=== PATIENT | female | born 1940 | race Caucasian/White ===

== ENCOUNTER → 2016-07-09 | Outpatient (CLI) | payer MEDICARE, MEDICAID ==
[~2016-07-09] MED LIST: 'TENORMIN50 MG PO; ATENOLOL25 MG PO; ATENOLOL50 MG PO; CARDIZEM CD120 MG PO; CARDIZEM CD240 MG PO; CARDIZEM LA180 MG PO; CARDIZEM120 MG PO; CIPROFLOXACIN500 MG PO; COUMADIN2.5 M1 PO; CRESTOR10 MG PO; CRESTOR20 MG PO; CRESTOR5 MG PO; Coumadin2.5 MG PO; DARVOCET N 1001 TAB PO; DYAZIDE 25 MG-31 CAP PO; FLONASE0.05 MG/AC NS; HYDROCHLOROTHIA25 MG PO; LANOXIN0.125 MG PO; LOVENOX EASYINJ1 DEV SC; METOPROLOL50 MG PO; MIRALAX POWDER17 G1 PO; MIRALAX17 GM/PACK PO; PRINIVIL2.5 MG PO; PROTONIX40 MG PO; SENEKOT PO; SOTALOL80 MG PO; ULTRAM50 MG PO; WARFARIN SOD5 MG PO
== END | disposition home or self-care (01) ==
LOC: CARD 10:22
DX: I48.2 Chronic atrial fibrillation (principal); I08.1 Rheumatic disorders of both mitral and tricuspid valves; I27.2 Other secondary pulmonary hypertension; Z79.899 Other long term (current) drug therapy

== ENCOUNTER → 2016-12-11 | Outpatient (CLI) | payer MEDICARE, MEDICAID | END | disposition home or self-care (01) | LOC: US 11:57 | DX: N64.4 Mastodynia (principal) ==

== ENCOUNTER → 2017-02-11 | Outpatient (CLI) | payer MEDICARE, MEDICAID | END | disposition home or self-care (01) | LOC: MAMMO 01-22 11:00 | DX: R92.2 Inconclusive mammogram (principal) ==

== ENCOUNTER 2019-04-04 10:21 | Emergency (ER) | payer MEDICARE, MEDICAID ==
[~2019-04-04] VITALS: Ht 165.1 cm; Wt 88.9 kg
[~2019-04-04 10:21] MED LIST changes: +ALPRAZOLAM0.25 M2 PO; +BIOTIN1 M2 PO; +CARDIZEM CD360 MG PO; +ELIQUIS5 M1 PO; +VITAMIN D31000 UNI1 PO
[2019-04-04 10:28] VITALS: BP 136/81
[2019-04-04] MEDS ORDERED: TYLENOL325 M1 PO (11:13)
== END 2019-04-04 13:05 | disposition home or self-care (01) ==
LOC: ED 10:21
DX: S20.212A Contusion of left front wall of thorax, initial encounter (principal); I48.91 Unspecified atrial fibrillation; K21.9 Gastro-esophageal reflux disease without esophagitis; E78.00 Pure hypercholesterolemia, unspecified; M06.9 Rheumatoid arthritis, unspecified; I10 Essential (primary) hypertension; Z98.61 Coronary angioplasty status; Z90.49 Acquired absence of other specified parts of digestive tract; Z90.710 Acquired absence of both cervix and uterus; Z79.899 Other long term (current) drug therapy; W50.0XXA Accidental hit or strike by another person, initial encounter; Y93.89 Activity, other specified; Y92.89 Other specified places as the place of occurrence of the external cause; Y99.8 Other external cause status

== ENCOUNTER 2020-12-01 14:41 | Emergency (ER) | payer OTHER ==
[~2020-12-01] VITALS: Ht 162.5 cm; Wt 87.5 kg
[~2020-12-01 14:41] MED LIST changes: +TYLENOL325 M1 PO
[2020-12-01 15:26] LABS: BASO # 0.1 10*3/uL (0.0-0.1); BASO % 1.2 % (0.0-1.0); EOS # 0.2 10*3/uL (0.0-0.4); EOS % 3.4 % (1.0-4.0); HEMATOCRIT 43.1 % (37.0-47.0); LYMPH # 2.1 10*3/uL (1.3-4.4); LYMPH % 37.4 % (27.0-41.0); MEAN CELL VOLUME 95.4 fl (81.0-99.0); MEAN CORPUSCULAR HGB CONC 32.5 g/dl (33.0-37.0); MEAN PLATELET VOLUME 11.6 fl (9.6-12.3); MONO # 0.5 10*3/uL (0.1-1.0); MONO % 9.4 % (3.0-9.0); NEUT # 2.7 10*3/uL (2.3-7.9); NEUT % 48.4 % (47.0-73.0); PLATELET COUNT AUTOMATED 217 10*3/uL (130-400); RED BLOOD COUNT 4.52 10*6/uL (4.10-5.10); RED CELL DISTRI WIDTH 11.9 % (0-14.5); WHITE BLOOD COUNT 5.6 10*3/uL (4.8-10.8)
[2020-12-01 15:37] LABS: ACT PARTIAL THROMBO TIME 31.1 SECONDS (20.0-32.1)
[2020-12-01 15:43] LABS: ALBUMIN 3.5 gm/dl (3.1-4.5); ALKALINE PHOSPHATASE 75 U/L (45-117); BUN 11 mg/dl (7-24); CHLORIDE 105 mmol/L (98-107); CREATININE 0.63 mg/dL (0.55-1.02); POTASSIUM 4.7 mmol/L (3.5-5.1); SGOT/AST 22 IU/L (3-35); SGPT/ALT 19 U/L (12-78); SODIUM 139 mmol/L (136-145); TOTAL PROTEIN 8.1 gm/dL (6.4-8.2)
[2020-12-01 15:46] LABS: TROPONIN I < 0.015 ng/ml (<0.045)
[2020-12-01 17:40] VITALS: BP 140/69
[2020-12-01 17:45] LABS: BILIRUBIN Negative (Negative); BLOOD Negative (Negative); CLARITY Clear (Clear); COLOR Yellow (Yellow); GLUCOSE Negative (Negative); KETONE Negative (Negative); LEUKO ESTERASE Trace (Negative); NITRITE Positive (Negative); UROBILINOGEN 0.2 E.U./dl (0.0-1.0)
[2020-12-01 17:53] LABS: BACTERIA 3+
== END 2020-12-01 17:36 | disposition home or self-care (01) ==
LOC: ED 14:41
PROVIDERS: Emergency Medicine
DX: R55 Syncope and collapse (principal); R00.2 Palpitations; R07.89 Other chest pain; I48.91 Unspecified atrial fibrillation; Z79.899 Other long term (current) drug therapy; F41.9 Anxiety disorder, unspecified; K21.9 Gastro-esophageal reflux disease without esophagitis; E78.00 Pure hypercholesterolemia, unspecified; M06.9 Rheumatoid arthritis, unspecified; Z90.49 Acquired absence of other specified parts of digestive tract; Z90.711 Acquired absence of uterus with remaining cervical stump; Z96.652 Presence of left artificial knee joint; Z95.0 Presence of cardiac pacemaker

== ENCOUNTER 2021-12-13 18:10 | Inpatient (IN) | payer OTHER ==
[~2021-12-13] VITALS: Ht 162.5 cm; Wt 83.0 kg
[2021-12-13] VITALS (11 sets, daily range): BP systolic 121–147; BP diastolic 72–107
[2021-12-13 19:40] LABS: BASO # 0.1 10*3/uL (0.0-0.1); BASO % 0.9 % (0.0-1.0); EOS # 0.2 10*3/uL (0.0-0.4); EOS % 3.4 % (1.0-4.0); HEMATOCRIT 42.1 % (37.0-47.0); LYMPH # 1.9 10*3/uL (1.3-4.4); LYMPH % 35.7 % (27.0-41.0); MEAN CORPUSCULAR HGB 31.8 pg (27.0-31.0); MEAN CORPUSCULAR HGB CONC 33.5 g/dl (33.0-37.0); MEAN PLATELET VOLUME 11.3 fl (9.6-12.3); MONO # 0.9 10*3/uL (0.1-1.0); MONO % 15.9 % (3.0-9.0); NEUT # 2.4 10*3/uL (2.3-7.9); NEUT % 43.9 % (47.0-73.0); PLATELET COUNT AUTOMATED 200 10*3/uL (130-400); RED BLOOD COUNT 4.43 10*6/uL (4.10-5.10); WHITE BLOOD COUNT 5.4 10*3/uL (4.8-10.8)
[2021-12-13 19:54] LABS: ACT PARTIAL THROMBO TIME 33.3 SECONDS (20.0-32.1)
[2021-12-13 20:01] LABS: ALKALINE PHOSPHATASE 81 U/L (45-117); BUN 19 mg/dl (7-24); CHLORIDE 104 mmol/L (98-107); CREATININE 0.93 mg/dL (0.55-1.02); LIPASE 161 U/L (73-393); POTASSIUM 4.3 mmol/L (3.5-5.1); SGOT/AST 25 IU/L (3-35); SGPT/ALT 19 U/L (12-78); SODIUM 138 mmol/L (136-145); TOTAL PROTEIN 8.1 gm/dL (6.4-8.2)
[2021-12-14] VITALS (27 sets, daily range): BP systolic 102–150; BP diastolic 41–104
[2021-12-14] MEDS ORDERED: DILTIAZEM CD240 MG PO (01:50)
[2021-12-14] MEDS ORDERED: FLOVENT HFA12 GM INH (01:53)
[2021-12-14 08:05] LABS: BILIRUBIN Negative (Negative); BLOOD Negative (Negative); CLARITY Clear (Clear); COLOR Yellow (Yellow); GLUCOSE Negative (Negative); KETONE Trace (Negative); LEUKO ESTERASE 2+ (Negative); NITRITE Positive (Negative)
[2021-12-14 08:19] LABS: BACTERIA 4+; WBC 21-30 wbc/hpf (0-5)
[2021-12-15 05:52] VITALS: BP 151/82
[2021-12-15 08:30] VITALS: BP 148/73
[2021-12-16 06:32] VITALS: BP 112/74
[2021-12-16 08:09] VITALS: BP 107/74
[2021-12-16] MEDS ORDERED: CIPROFLOXACIN500 M4 PO (09:22)
== END 2021-12-16 11:35 | disposition home or self-care (01) | DRG 872 ==
LOC: ED 18:10 → EDHOLD 23:02 → 4E 12-15 20:43 → EDHOLD 12-15 22:23
PROVIDERS: Family Medicine; ADMIT Internal Medicine; ATTEND Internal Medicine
DX: A41.9 Sepsis, unspecified organism (principal); D68.51 Activated protein C resistance; N30.00 Acute cystitis without hematuria; I48.21 Permanent atrial fibrillation; Z20.822 Contact with and (suspected) exposure to COVID-19; Z96.653 Presence of artificial knee joint, bilateral; K21.9 Gastro-esophageal reflux disease without esophagitis; E78.00 Pure hypercholesterolemia, unspecified; M06.9 Rheumatoid arthritis, unspecified; B96.20 Unspecified Escherichia coli [E. coli] as the cause of diseases classified elsewhere; Z90.49 Acquired absence of other specified parts of digestive tract; Z90.710 Acquired absence of both cervix and uterus; Z95.0 Presence of cardiac pacemaker; Z80.59 Family history of malignant neoplasm of other urinary tract organ; Z84.89 Family history of other specified conditions; Z78.9 Other specified health status

== ENCOUNTER → 2021-12-20 | Outpatient (CLI) | payer OTHER ==
[~2021-12-20] MED LIST changes: +CIPROFLOXACIN500 M4 PO; +DILTIAZEM CD240 MG PO; +FLOVENT HFA12 GM INH
[2021-12-20 15:01] LABS: BILIRUBIN Negative (Negative); BLOOD Negative (Negative); CLARITY Clear (Clear); COLOR Yellow (Yellow); GLUCOSE Negative (Negative); KETONE Negative (Negative); LEUKO ESTERASE Negative (Negative); NITRITE Negative (Negative); PH 5.5 (4.5-8.0); SPECIFIC GRAVITY 1.015 (1.001-1.030); UROBILINOGEN 0.2 E.U./dl (0.0-1.0)
[2021-12-20 15:28] LABS: CHOLESTEROL 197 mg/dL (<200); LDL CHOLESTEROL 99 mg/dL (9-159); TRIGLYCERIDES 205 mg/dl (<150)
[2021-12-20 15:36] LABS: BACTERIA 1+; CALCIUM OXALATE CRYSTALS Trace; EPITHELIAL CELLS TNTC; MUCOUS 1+; RBC 0-2 rbc/hpf (0-2)
== END ==
LOC: LAB 14:26
PROVIDERS: ATTEND Internal Medicine
DX: I10 Essential (primary) hypertension (principal); N39.0 Urinary tract infection, site not specified

== ENCOUNTER → 2022-03-26 | Outpatient (CLI) | payer OTHER | END | disposition home or self-care (01) | LOC: US 01:10 | PROVIDERS: ATTEND Internal Medicine | DX: N32.89 Other specified disorders of bladder (principal) ==

== ENCOUNTER → 2022-04-28 | Outpatient (CLI) | payer OTHER | END | disposition home or self-care (01) | LOC: US 00:37 | PROVIDERS: ATTEND Internal Medicine | DX: N89.8 Other specified noninflammatory disorders of vagina (principal); Z90.710 Acquired absence of both cervix and uterus ==

== ENCOUNTER → 2022-05-20 | Outpatient (CLI) | payer OTHER | END | disposition home or self-care (01) | LOC: CT 01:11 → LAB 01:11 → CT 09:00 | PROVIDERS: ATTEND Internal Medicine | DX: Z01.818 Encounter for other preprocedural examination (principal); N89.8 Other specified noninflammatory disorders of vagina; K57.30 Diverticulosis of large intestine without perforation or abscess without bleeding; Z90.710 Acquired absence of both cervix and uterus ==

== ENCOUNTER → 2023-03-19 | Outpatient (CLI) | payer MEDICARE ==
[~2023-03-19] MED LIST changes: +CEFUROXIME AXE500 MG PO
== END | disposition home or self-care (01) ==
LOC: MAMMO 10:18
PROVIDERS: ATTEND Internal Medicine
DX: Z12.31 Encounter for screening mammogram for malignant neoplasm of breast (principal)

== ENCOUNTER → 2023-04-02 | Outpatient (CLI) | payer MEDICARE | END | disposition home or self-care (01) | LOC: RAD 12:44 | PROVIDERS: ATTEND Internal Medicine | DX: I51.7 Cardiomegaly (principal); R06.02 Shortness of breath ==

== ENCOUNTER → 2023-06-25 | Outpatient (CLI) | payer MEDICARE ==
[~2023-06-25] MED LIST changes: +PROAIR DIGIHAL90 MCG INH; +ROSUVASTATIN CAL5 MG PO; +SEPTDS PO
== END ==
LOC: CT 00:41
PROVIDERS: ATTEND Urology
DX: N28.1 Cyst of kidney, acquired (principal); N39.0 Urinary tract infection, site not specified; K57.30 Diverticulosis of large intestine without perforation or abscess without bleeding; I70.0 Atherosclerosis of aorta; Z90.710 Acquired absence of both cervix and uterus

== ENCOUNTER 2023-09-11 15:16 | Inpatient (IN) | payer MEDICARE ==
[~2023-09-11] VITALS: Ht 162.5 cm; Wt 87.8 kg
[2023-09-11 15:47] VITALS: BP 131/106
[2023-09-11 16:34] LABS: BILIRUBIN Negative (Negative); BLOOD 1+ (Negative); CLARITY Cloudy (Clear); COLOR Yellow (Yellow); GLUCOSE Negative (Negative); KETONE Negative (Negative); LEUKO ESTERASE 2+ (Negative); NITRITE Positive (Negative); PH 5.5 (4.5-8.0); SPECIFIC GRAVITY 1.025 (1.001-1.030); UROBILINOGEN 0.2 E.U./dl (0.0-1.0)
[2023-09-11 16:44] LABS: BACTERIA 2+; RBC 0-2 rbc/hpf (0-2); WBC 51-100 wbc/hpf (0-5)
[2023-09-11 17:02] LABS: BASO # 0.1 10*3/uL (0.0-0.1); BASO % 0.9 % (0.0-1.0); EOS # 0.1 10*3/uL (0.0-0.4); EOS % 0.9 % (1.0-4.0); HEMATOCRIT 41.4 % (37.0-47.0); LYMPH # 1.9 10*3/uL (1.3-4.4); LYMPH % 29.8 % (27.0-41.0); MEAN CELL VOLUME 97.2 fl (81.0-99.0); MEAN CORPUSCULAR HGB 31.5 pg (27.0-31.0); MEAN CORPUSCULAR HGB CONC 32.4 g/dl (33.0-37.0); MEAN PLATELET VOLUME 11.7 fl (9.6-12.3); MONO # 0.6 10*3/uL (0.1-1.0); MONO % 9.1 % (3.0-9.0); NEUT # 3.8 10*3/uL (2.3-7.9); NEUT % 59.1 % (47.0-73.0); PLATELET COUNT AUTOMATED 170 10*3/uL (130-400); RED BLOOD COUNT 4.26 10*6/uL (4.10-5.10); WHITE BLOOD COUNT 6.4 10*3/uL (4.8-10.8)
[2023-09-11 17:16] LABS: BUN 13 mg/dl (9-23); CHLORIDE 110 mmol/L (98-107); POTASSIUM 3.7 mmol/L (3.4-5.1)
[2023-09-11] MEDS ORDERED: Ceftriaxone Sodium 1 GM/10 ML SYR IV ONE (17:40)
[2023-09-11] MEDS ORDERED: SODIUM CHLORIDE 0.9% 1,000 ML IV ONE ×2 (17:40→20:25)
[2023-09-11 19:16] VITALS: BP 123/72
[2023-09-11] MEDS ORDERED: ZOLOFT50 MG PO (19:20)
[2023-09-11] MEDS ORDERED: Diltiazem Hydrochloride 125 ML IV SCH (20:20)
[2023-09-11] MEDS ORDERED: Diltiazem Hydrochloride 25 MG/5 ML VIAL IV ONE (20:20)
[2023-09-11] MEDS ORDERED: Albuterol Sulfate 2.5 MG/3 ML VIAL NEB PRN (20:30)
[2023-09-11 20:40] VITALS: BP 148/84
[2023-09-11] MEDS ORDERED: BUDESONIDE 0.5 MG AMP NEB SCH (20:40)
[2023-09-11] MEDS ORDERED: Sertraline Hydrochloride 50 MG TAB PO SCH (21:00)
[2023-09-11] MEDS ORDERED: ATORVASTATIN CALCIUM 20 MG TAB PO SCH (22:00)
[2023-09-11] MEDS ORDERED: APIXABAN 5 MG TAB PO SCH (22:00)
[2023-09-11] MEDS ORDERED: ATENOLOL 50 MG TAB PO SCH (22:00)
[2023-09-12] VITALS: BP 145/84
[2023-09-12 05:40] LABS: ALKALINE PHOSPHATASE 61 U/L (46-116); BUN 10 mg/dl (9-23); CHLORIDE 110 mmol/L (98-107); POTASSIUM 3.5 mmol/L (3.4-5.1); SGPT/ALT 12 U/L (5-49); TOTAL PROTEIN 6.6 gm/dL (6.0-8.0)
[2023-09-12 06:07] LABS: BASO # 0.1 10*3/uL (0.0-0.1); BASO % 1.1 % (0.0-1.0); EOS # 0.1 10*3/uL (0.0-0.4); EOS % 1.8 % (1.0-4.0); HEMATOCRIT 41.5 % (37.0-47.0); LYMPH # 2.1 10*3/uL (1.3-4.4); LYMPH % 29.9 % (27.0-41.0); MEAN CELL VOLUME 95.8 fl (81.0-99.0); MEAN CORPUSCULAR HGB 31.4 pg (27.0-31.0); MEAN CORPUSCULAR HGB CONC 32.8 g/dl (33.0-37.0); MEAN PLATELET VOLUME 11.9 fl (9.6-12.3); MONO # 0.6 10*3/uL (0.1-1.0); MONO % 7.9 % (3.0-9.0); NEUT # 4.2 10*3/uL (2.3-7.9); NEUT % 59.2 % (47.0-73.0); PLATELET COUNT AUTOMATED 173 10*3/uL (130-400); RED BLOOD COUNT 4.33 10*6/uL (4.10-5.10); RED CELL DISTRI WIDTH 13.2 % (0-14.5); WHITE BLOOD COUNT 7.1 10*3/uL (4.8-10.8)
[2023-09-12 08:00] VITALS: BP 130/82
[2023-09-12] MEDS ORDERED: IOHEXOL 350 MG/ML 100 ML VIAL IV ONE (08:10)
[2023-09-12] MEDS ORDERED: SODIUM CHLORIDE 0.9% 100 ML BAG IV ONE (08:10)
[2023-09-12] MEDS ORDERED: METOPROLOL SUCCINATE XR 100 MG TAB PO SCH (10:00)
[2023-09-12] MEDS ORDERED: Ceftriaxone Sodium 1 GM in SYRINGE INFUSION 10 ML IV SCH (10:00)
[2023-09-12 12:00] VITALS: BP 140/95
[2023-09-12] MEDS ORDERED: Haloperidol Lactate 5 MG/ML AMP IM ONE (12:25)
[2023-09-12] MEDS ORDERED: Diltiazem Hydrochloride 125 ML IV SCH (12:35)
[2023-09-12] MEDS ORDERED: Dexamethasone Sodium Phospha 4 MG/ML VIAL IV SCH (12:38)
[2023-09-12] MEDS ORDERED: Dexamethasone Sodium Phospha 4 MG/ML VIAL IV ONE (13:05)
[2023-09-12] MEDS ORDERED: LEVETIRACETAM IN NACL (ISO-OS) 100 ML IV ONE (13:05)
[2023-09-12 16:00] VITALS: BP 150/90
[2023-09-12] MEDS ORDERED: Dexamethasone Sodium Phospha 4 MG IV SCH (18:00)
== END 2023-09-12 17:32 | disposition short-term general hospital (02) | DRG 689 ==
LOC: ED 15:16 → EDHOLD 17:40 → 4E 17:40
PROVIDERS: Internal Medicine; Nurse Practitioner Family; ADMIT Internal Medicine; ATTEND Internal Medicine
DX: N39.0 Urinary tract infection, site not specified (principal); G93.41 Metabolic encephalopathy; I48.21 Permanent atrial fibrillation; I10 Essential (primary) hypertension; Z96.653 Presence of artificial knee joint, bilateral; E78.5 Hyperlipidemia, unspecified; G93.89 Other specified disorders of brain; Z95.0 Presence of cardiac pacemaker; Z90.710 Acquired absence of both cervix and uterus; Z80.59 Family history of malignant neoplasm of other urinary tract organ; Z82.3 Family history of stroke

== ENCOUNTER 2023-10-30 12:39 | Emergency (ER) | payer MEDICARE ==
[~2023-10-30] VITALS: Ht 162.5 cm; Wt 82.1 kg
[~2023-10-30 12:39] MED LIST changes: +ZOLOFT50 MG PO
[2023-10-30 13:57] LABS: BASO # 0.1 10*3/uL (0.0-0.1); BASO % 0.9 % (0.0-1.0); EOS # 0.1 10*3/uL (0.0-0.4); HEMATOCRIT 42.2 % (37.0-47.0); LYMPH # 1.8 10*3/uL (1.3-4.4); LYMPH % 26.6 % (27.0-41.0); MEAN CELL VOLUME 95.9 fl (81.0-99.0); MEAN CORPUSCULAR HGB 31.4 pg (27.0-31.0); MEAN CORPUSCULAR HGB CONC 32.7 g/dl (33.0-37.0); MEAN PLATELET VOLUME 11.1 fl (9.6-12.3); MONO # 0.9 10*3/uL (0.1-1.0); MONO % 12.3 % (3.0-9.0); PLATELET COUNT AUTOMATED 147 10*3/uL (130-400); WHITE BLOOD COUNT 6.9 10*3/uL (4.8-10.8)
[2023-10-30 14:14] LABS: ALKALINE PHOSPHATASE 66 U/L (46-116); BUN 10 mg/dl (9-23); CHLORIDE 101 mmol/L (98-107); POTASSIUM 3.8 mmol/L (3.4-5.1); SGPT/ALT 13 U/L (5-49); TOTAL PROTEIN 6.8 gm/dL (6.0-8.0)
[2023-10-30] MEDS ORDERED: MAGNESIUM SULFATE 100 ML IV ONE (16:40)
[2023-10-30 17:43] VITALS: BP 120/62
== END 2023-10-30 17:41 | disposition home or self-care (01) ==
LOC: ED 12:39
PROVIDERS: Internal Medicine
DX: R60.0 Localized edema (principal); K21.9 Gastro-esophageal reflux disease without esophagitis; M19.90 Unspecified osteoarthritis, unspecified site; I10 Essential (primary) hypertension; E78.00 Pure hypercholesterolemia, unspecified; I48.91 Unspecified atrial fibrillation; Z90.49 Acquired absence of other specified parts of digestive tract; Z95.5 Presence of coronary angioplasty implant and graft; Z90.710 Acquired absence of both cervix and uterus; Z96.653 Presence of artificial knee joint, bilateral

== ENCOUNTER 2024-03-08 16:25 | Inpatient (IN) | payer MEDICARE ==
[~2024-03-08] VITALS: Ht 162.6 cm; Wt 83.9 kg
[2024-03-08 16:31] VITALS: BP 114/69
[2024-03-08] MEDS ORDERED: DILTIAZEM HCL120 M2 PO (16:47)
[2024-03-08] MEDS ORDERED: RIVASTIGMINE TAR3 M1 PO (16:47)
[2024-03-08] MEDS ORDERED: ATORVASTATIN CA10 M1 PO (16:48)
[2024-03-08] MEDS ORDERED: DIGOXIN125 MCG PO (16:48)
[2024-03-08] MEDS ORDERED: POTASSIUM CHLO20 ME4 PO (16:49)
[2024-03-08] MEDS ORDERED: FUROSEMIDE40 MG PO (16:49)
[2024-03-08] MEDS ORDERED: OLANZAPINE5 MG PO (16:49)
[2024-03-08] MEDS ORDERED: SODIUM CHLORIDE 0.9% 1,000 ML IV ONE ×2 (16:50→19:50)
[2024-03-08 17:01] LABS: BASO # 0.1 10*3/uL (0.0-0.1); BASO % 0.9 % (0.0-1.0); EOS # 0.2 10*3/uL (0.0-0.4); HEMATOCRIT 45.8 % (37.0-47.0); MEAN CELL VOLUME 94.8 fl (81.0-99.0); MEAN CORPUSCULAR HGB 29.6 pg (27.0-31.0); MEAN CORPUSCULAR HGB CONC 31.2 g/dl (33.0-37.0); MEAN PLATELET VOLUME 11.3 fl (9.6-12.3); MONO # 1.1 10*3/uL (0.1-1.0); MONO % 12.1 % (3.0-9.0); NEUT # 5.2 10*3/uL (2.3-7.9); NEUT % 57.5 % (47.0-73.0); PLATELET COUNT AUTOMATED 230 10*3/uL (130-400); RED BLOOD COUNT 4.83 10*6/uL (4.10-5.10); RED CELL DISTRI WIDTH 13.1 % (0-14.5)
[2024-03-08 17:19] LABS: POTASSIUM 4.9 mmol/L (3.4-5.1)
[2024-03-08] MEDS ORDERED: Ondansetron Hydrochloride 4 MG/2 ML VIAL IV PRN (19:45)
[2024-03-08] MEDS ORDERED: MORPHINE Sulfate 2 MG/ML SYR IV PRN (19:45)
[2024-03-08] MEDS ORDERED: Acetaminophen/Hydrocodone 5 MG/325 MG TABLET PO PRN (19:45)
[2024-03-08 20:45] VITALS: BP 158/68
[2024-03-08 22:41] VITALS: BP 150/62
[2024-03-08 22:50] VITALS: BP 138/64
[2024-03-09 06:39] LABS: BASO # 0.1 10*3/uL (0.0-0.1); BASO % 0.8 % (0.0-1.0); EOS # 0.1 10*3/uL (0.0-0.4); EOS % 1.5 % (1.0-4.0); HEMATOCRIT 40.5 % (37.0-47.0); MEAN CELL VOLUME 93.3 fl (81.0-99.0); MEAN CORPUSCULAR HGB 29.5 pg (27.0-31.0); MEAN CORPUSCULAR HGB CONC 31.6 g/dl (33.0-37.0); MEAN PLATELET VOLUME 11.7 fl (9.6-12.3); MONO # 1.1 10*3/uL (0.1-1.0); MONO % 13.3 % (3.0-9.0); NEUT # 4.7 10*3/uL (2.3-7.9); NEUT % 58.2 % (47.0-73.0); PLATELET COUNT AUTOMATED 171 10*3/uL (130-400); POTASSIUM 4.8 mmol/L (3.4-5.1); RED BLOOD COUNT 4.34 10*6/uL (4.10-5.10); RED CELL DISTRI WIDTH 13.2 % (0-14.5)
[2024-03-09 06:54] LABS: BILIRUBIN Negative (Negative); BLOOD 3+ (Negative); CLARITY Turbid (Clear); COLOR Yellow (Yellow); GLUCOSE Negative (Negative); KETONE Negative (Negative); LEUKO ESTERASE 3+ (Negative); NITRITE Negative (Negative); PH 5.5 (4.5-8.0); UROBILINOGEN 0.2 E.U./dl (0.0-1.0)
[2024-03-09 07:17] LABS: BACTERIA 3+; EPITHELIAL CELLS TNTC; RBC 21-30 rbc/hpf (0-2); WBC TNTC wbc/hpf (0-5)
[2024-03-09 08:00] VITALS: BP 148/53; BP 157/79
[2024-03-09] MEDS ORDERED: DIGOXIN 125 MCG TAB PO SCH (10:00)
[2024-03-09] MEDS ORDERED: Ceftriaxone Sodium 1 GM in SYRINGE INFUSION 10 ML IV SCH (10:00)
[2024-03-09] MEDS ORDERED: DILTIAZEM CD 120 MG CAP PO SCH (10:00)
[2024-03-09] MEDS ORDERED: APIXABAN 2.5 MG TABLET PO SCH (10:00)
[2024-03-09] MEDS ORDERED: OLANZAPINE 2.5 MG TAB PO SCH (10:00)
[2024-03-09] MEDS ORDERED: Rivastigmine Tartrate 3 MG CAP PO SCH (10:00)
[2024-03-09 12:00] VITALS: BP 137/77
[2024-03-09] MEDS ORDERED: SODIUM CHLORIDE 0.9% 1,000 ML IV SCH (13:10)
[2024-03-09 16:00] VITALS: BP 132/80
[2024-03-09] MEDS ORDERED: ATORVASTATIN CALCIUM 10 MG TAB PO SCH (18:00)
[2024-03-09 20:00] VITALS: BP 150/86
[2024-03-09] MEDS ORDERED: Sertraline Hydrochloride 50 MG TAB PO SCH (21:00)
[2024-03-09] MEDS ORDERED: ATENOLOL 50 MG TAB PO SCH (22:00)
[2024-03-10] VITALS: BP 148/77
[2024-03-10 06:27] LABS: POTASSIUM 4.9 mmol/L (3.4-5.1); TOTAL PROTEIN 7.2 gm/dL (6.0-8.0)
[2024-03-10 06:29] LABS: BASO # 0.1 10*3/uL (0.0-0.1); BASO % 0.5 % (0.0-1.0); EOS # 0.1 10*3/uL (0.0-0.4); EOS % 1.1 % (1.0-4.0); HEMATOCRIT 40.9 % (37.0-47.0); MEAN CELL VOLUME 93.4 fl (81.0-99.0); MEAN CORPUSCULAR HGB 29.5 pg (27.0-31.0); MEAN CORPUSCULAR HGB CONC 31.5 g/dl (33.0-37.0); MEAN PLATELET VOLUME 11.9 fl (9.6-12.3); MONO % 9.9 % (3.0-9.0); NEUT # 7.2 10*3/uL (2.3-7.9); PLATELET COUNT AUTOMATED 182 10*3/uL (130-400); RED BLOOD COUNT 4.38 10*6/uL (4.10-5.10); RED CELL DISTRI WIDTH 13.1 % (0-14.5); WHITE BLOOD COUNT 10.1 10*3/uL (4.8-10.8)
[2024-03-10 08:00] VITALS: BP 167/80
[2024-03-10 12:00] VITALS: BP 162/68
[2024-03-10] MEDS ORDERED: SODIUM CHLORIDE 0.9% 500 ML IV SCH (13:30)
[2024-03-10 15:06] LABS: BACTERIA 1+; RBC 21-30 rbc/hpf (0-2); WBC 41-50 wbc/hpf (0-5)
[2024-03-10 16:00] VITALS: BP 155/59
[2024-03-10 20:00] VITALS: BP 174/87
[2024-03-10] MEDS ORDERED: SODIUM CHLORIDE 0.9% 1,000 ML IV SCH ×2 (21:25→21:45)
[2024-03-10] MEDS ORDERED: amLODIPine besylate 5 MG TAB PO SCH (22:00)
[2024-03-11] VITALS: BP 158/70
[2024-03-11 08:00] VITALS: BP 156/60
[2024-03-11] MEDS ORDERED: CALCIUM ACETATE 667 MG CAP PO SCH (08:00)
[2024-03-11 11:36] LABS: BASO # 0.1 10*3/uL (0.0-0.1); BASO % 0.5 % (0.0-1.0); EOS # 0.2 10*3/uL (0.0-0.4); EOS % 2.3 % (1.0-4.0); HEMATOCRIT 41.4 % (37.0-47.0); MEAN CELL VOLUME 92.4 fl (81.0-99.0); MEAN CORPUSCULAR HGB 29.5 pg (27.0-31.0); MEAN CORPUSCULAR HGB CONC 31.9 g/dl (33.0-37.0); MEAN PLATELET VOLUME 12.3 fl (9.6-12.3); MONO # 0.9 10*3/uL (0.1-1.0); MONO % 9.8 % (3.0-9.0); NEUT # 6.2 10*3/uL (2.3-7.9); NEUT % 66.9 % (47.0-73.0); PLATELET COUNT AUTOMATED 198 10*3/uL (130-400); RED BLOOD COUNT 4.48 10*6/uL (4.10-5.10); RED CELL DISTRI WIDTH 13.3 % (0-14.5); WHITE BLOOD COUNT 9.3 10*3/uL (4.8-10.8)
[2024-03-11 11:36] LABS: POTASSIUM 4.8 mmol/L (3.4-5.1); TOTAL PROTEIN 7.1 gm/dL (6.0-8.0)
[2024-03-11 12:00] VITALS: BP 103/86
[2024-03-11 16:00] VITALS: BP 161/81
[2024-03-11] MEDS ORDERED: SODIUM CHLORIDE 0.9% 1,000 ML IV SCH (16:55)
[2024-03-11 20:00] VITALS: BP 140/71
[2024-03-11] MEDS ORDERED: CEFDINIR300 MG PO (22:04)
[2024-03-12] VITALS: BP 173/84
[2024-03-12 08:00] VITALS: BP 171/89
[2024-03-12] MEDS ORDERED: SODIUM CHLORIDE 0.45% 1,000 ML IV ONE (09:55)
[2024-03-12 12:00] VITALS: BP 154/72; BP 182/84
[2024-03-12 16:00] VITALS: BP 169/95
[2024-03-12 20:00] VITALS: BP 151/83
[2024-03-13] VITALS: BP 162/52
[2024-03-13 05:58] LABS: POTASSIUM 3.6 mmol/L (3.4-5.1)
[2024-03-13 06:30] LABS: BASO # 0.1 10*3/uL (0.0-0.1); BASO % 0.7 % (0.0-1.0); EOS # 0.3 10*3/uL (0.0-0.4); EOS % 3.2 % (1.0-4.0); HEMATOCRIT 40.3 % (37.0-47.0); MEAN CELL VOLUME 92.2 fl (81.0-99.0); MEAN CORPUSCULAR HGB 29.3 pg (27.0-31.0); MEAN CORPUSCULAR HGB CONC 31.8 g/dl (33.0-37.0); MEAN PLATELET VOLUME 11.4 fl (9.6-12.3); MONO # 0.9 10*3/uL (0.1-1.0); MONO % 9.3 % (3.0-9.0); PLATELET COUNT AUTOMATED 212 10*3/uL (130-400); RED BLOOD COUNT 4.37 10*6/uL (4.10-5.10); RED CELL DISTRI WIDTH 13.1 % (0-14.5); WHITE BLOOD COUNT 9.1 10*3/uL (4.8-10.8)
[2024-03-13 08:00] VITALS: BP 146/64
[2024-03-13] MEDS ORDERED: SODIUM CHLORIDE 0.9% 1,000 ML IV SCH (10:15)
[2024-03-13 12:00] VITALS: BP 148/65
[2024-03-13 16:00] VITALS: BP 172/77
[2024-03-13 20:00] VITALS: BP 134/62
[2024-03-13] MEDS ORDERED: amLODIPine besylate 5 MG TAB PO SCH (22:00)
[2024-03-14] VITALS: BP 153/86
[2024-03-14 08:00] VITALS: BP 106/90
[2024-03-14 12:00] VITALS: BP 150/73
[2024-03-14 14:09] LABS: POTASSIUM 3.7 mmol/L (3.4-5.1)
[2024-03-14 16:00] VITALS: BP 154/64
[2024-03-14] MEDS ORDERED: CEFDINIR300 MG PO (18:35)
[2024-03-14 20:00] VITALS: BP 117/52; BP 129/59
[2024-03-15] VITALS: BP 124/41
[2024-03-15 08:00] VITALS: BP 118/90
[2024-03-15 14:14] LABS: POTASSIUM 3.1 mmol/L (3.4-5.1)
== END 2024-03-15 13:45 | disposition hospice, home (50) | DRG 682 ==
LOC: ED 16:25 → 4E 19:23 → EDHOLD 19:23 → 4E 22:39
PROVIDERS: Internal Medicine; Internal Medicine Nephrology; Nurse Practitioner Family; ADMIT Internal Medicine; ATTEND Internal Medicine
DX: N17.0 Acute kidney failure with tubular necrosis (principal); G93.41 Metabolic encephalopathy; N39.0 Urinary tract infection, site not specified; E86.0 Dehydration; B96.20 Unspecified Escherichia coli [E. coli] as the cause of diseases classified elsewhere; G93.89 Other specified disorders of brain; K21.9 Gastro-esophageal reflux disease without esophagitis; M06.9 Rheumatoid arthritis, unspecified; I10 Essential (primary) hypertension; E78.00 Pure hypercholesterolemia, unspecified; I48.91 Unspecified atrial fibrillation; F41.9 Anxiety disorder, unspecified; Z66 Do not resuscitate; I25.10 Atherosclerotic heart disease of native coronary artery without angina pectoris; Z96.653 Presence of artificial knee joint, bilateral; Z80.49 Family history of malignant neoplasm of other genital organs; Z82.3 Family history of stroke; Z95.0 Presence of cardiac pacemaker; Z79.899 Other long term (current) drug therapy; Z90.710 Acquired absence of both cervix and uterus

== ENCOUNTER → 2024-03-31 | Outpatient (CLI) | payer MEDICARE ==
[~2024-03-31] MED LIST changes: +ATORVASTATIN CA10 M1 PO; +CEFDINIR300 MG PO; +DIGOXIN125 MCG PO; +DILTIAZEM HCL120 M2 PO; +FUROSEMIDE40 MG PO; +OLANZAPINE5 MG PO; +POTASSIUM CHLO20 ME4 PO; +RIVASTIGMINE TAR3 M1 PO
[2024-03-31 12:53] LABS: BASO # 0.1 10*3/uL (0.0-0.1); BASO % 1.2 % (0.0-1.0); EOS # 0.2 10*3/uL (0.0-0.4); EOS % 2.1 % (1.0-4.0); HEMATOCRIT 43.9 % (37.0-47.0); MEAN CELL VOLUME 94.6 fl (81.0-99.0); MEAN CORPUSCULAR HGB 29.3 pg (27.0-31.0); MEAN PLATELET VOLUME 11.8 fl (9.6-12.3); MONO # 0.7 10*3/uL (0.1-1.0); MONO % 8.3 % (3.0-9.0); NEUT # 4.6 10*3/uL (2.3-7.9); NEUT % 55.8 % (47.0-73.0); PLATELET COUNT AUTOMATED 203 10*3/uL (130-400); RED BLOOD COUNT 4.64 10*6/uL (4.10-5.10); RED CELL DISTRI WIDTH 13.1 % (0-14.5); WHITE BLOOD COUNT 8.2 10*3/uL (4.8-10.8)
[2024-03-31 13:15] LABS: BILIRUBIN Negative (Negative); BLOOD Negative (Negative); CLARITY Clear (Clear); COLOR Yellow (Yellow); GLUCOSE Negative (Negative); KETONE Negative (Negative); LEUKO ESTERASE 3+ (Negative); NITRITE Negative (Negative); UROBILINOGEN 0.2 E.U./dl (0.0-1.0)
[2024-03-31 13:16] LABS: ALKALINE PHOSPHATASE 97 U/L (46-116); BUN 12 mg/dl (9-23); CHLORIDE 103 mmol/L (98-107); FREE T4 0.95 ng/dl (0.89-1.76); POTASSIUM 4.4 mmol/L (3.4-5.1); SGPT/ALT 9 U/L (5-49); TOTAL PROTEIN 7.9 gm/dL (6.0-8.0)
[2024-03-31 13:27] LABS: WBC 51-100 wbc/hpf (0-5)
[2024-03-31 13:28] LABS: BACTERIA 3+; RBC 0-2 rbc/hpf (0-2)
== END | disposition home or self-care (01) ==
LOC: LAB 00:34
PROVIDERS: ATTEND Internal Medicine
DX: R53.1 Weakness (principal); N30.01 Acute cystitis with hematuria